=== PATIENT | male | born 1985 | race African-American/Black ===

== ENCOUNTER 2020-12-08 00:43 | Emergency (ER) | payer OTHER ==
[~2020-12-08 00:43] MED LIST: AMLODIPINE BESYL5 MG PO; CHLORTHALIDONE25 MG PO; COZAAR 25MG TAB25 MG PO; IBUPROFEN800 MG PO; VIBRAMYCIN100 MG PO
[2020-12-08 02:01] LABS: BASOPHIL 0.1 % (0-2); EOSINOPHIL 0.8 % (0-5); HCT 47.3 % (42.0-52.0); HGB 15.3 g/dl (13.2-18.0); LYMPHOCYTE 34.9 % (15-48); MCHC 32.3 g/dL (32.0-36.0); MCV 86.6 fL (78.0-100.0); MONOCYTE 6.1 % (0-12); MPV 11.1 fL (6.0-9.5); NRBC 0; PLT 249 K/uL (150-400); RBC 5.46 M/uL (4.70-6.00); RDW 11.4 % (11.5-14.0); WBC 7.7 K/uL (4.0-10.5)
[2020-12-08 02:12] LABS: INR 1.01 (0.9-1.2); PROTHROMBIN TIME 12.6 SECONDS (11.4-13.6); PTT 30.3 SECONDS (22.2-34.7)
[2020-12-08 02:29] LABS: PRO-BNP < 5 pg/mL (<125)
[2020-12-08 02:37] LABS: ALBUMIN 3.5 g/dL (3.4-5.0); BILIRUBIN - TOTAL 0.5 mg/dL (0.2-1.0); BUN/CREAT RATIO (CALC) 16.5 RATIO; C-REACTIVE PROTEIN 4.3 mg/dL (<=0.90); CREATININE 1.15 mg/dL (0.67-1.17); GLOBULIN (CALCULATION) 4.9 g/dL; POTASSIUM 3.1 mmol/L (3.5-5.1); TOTAL PROTEIN 8.4 g/dL (6.4-8.2)
[2020-12-08 02:51] LABS: CORONAVIRUS 2019 SARS-COV-2 POSITIVE (NEGATIVE); INFLUENZA A NAA NEGATIVE (NEGATIVE)
[2020-12-08] MEDS ORDERED: HYCODAN5 ML PO ×2 (03:01→03:04)
[2020-12-08] MEDS ORDERED: TESSALON PERLE100 M1 PO (03:04)
[2020-12-08] MEDS ORDERED: VENTOLIN HFA18 GM INH (03:04)
== END 2020-12-08 03:15 | disposition home or self-care (01) ==
LOC: FER 00:43
PROVIDERS: Emergency Medicine
DX: U07.1 COVID-19 (principal); R42 Dizziness and giddiness; E11.9 Type 2 diabetes mellitus without complications; Z79.84 Long term (current) use of oral hypoglycemic drugs
CPT/HCPCS: 36415; 36600; 71250; 80053; 82728; 82803; 83605; 83735; 83880; 84145; 84484; 85025; 85610; 85730; 86140; 93005; U0002

== ENCOUNTER 2021-04-20 23:41 | Emergency (ER) | payer OTHER ==
[~2021-04-20 23:41] MED LIST changes: +HYCODAN5 ML PO; +TESSALON PERLE100 M1 PO; +VENTOLIN HFA18 GM INH
[2021-04-21 00:43] LABS: BASOPHIL 0.7 % (0-2); HCT 44.4 % (42.0-52.0); HGB 15.1 g/dl (13.2-18.0); LYMPHOCYTE 45.5 % (15-48); MCH 28.6 pg (25.0-31.0); MCV 84.1 fL (78.0-100.0); MONOCYTE 4.5 % (0-12); MPV 11.2 fL (6.0-9.5); NEUTROPHIL 46.1 % (41-80); NRBC 0; PLT 284 K/uL (150-400); RBC 5.28 M/uL (4.70-6.00); RDW 11.7 % (11.5-14.0); WBC 8.7 K/uL (4.0-10.5)
[2021-04-21 00:56] LABS: ALBUMIN 3.6 g/dL (3.4-5.0); BILIRUBIN - TOTAL 0.4 mg/dL (0.2-1.0); BUN/CREAT RATIO (CALC) 10.9 RATIO; CREATININE 1.01 mg/dL (0.67-1.17); GLOBULIN (CALCULATION) 4.4 g/dL; POTASSIUM 3.6 mmol/L (3.5-5.1)
[2021-04-21 03:44] LABS: BILIRUBIN NEGATIVE (NEGATIVE); BLOOD NEGATIVE Ery/uL (NEGATIVE); CLARITY CLEAR (CLEAR); COLOR YELLOW (YELLOW); GLUCOSE (U) 3+ mg/dL (NORMAL); LEUKOCYTES NEGATIVE Leu/uL (NEGATIVE); NITRITE NEGATIVE (NEGATIVE); PROTEIN NEGATIVE (NEGATIVE); SPECIFIC GRAVITY 1.025 (1.001-1.030); UROBILINOGEN 0.2 mg/dL (0.2-1.0); pH 5.5 (5.0-9.0)
[2021-04-21] MEDS ORDERED: AMLODIPINE BESYL5 MG PO (03:44)
[2021-04-21] MEDS ORDERED: CHLORTHALIDONE25 MG PO (03:44)
[2021-04-21] MEDS ORDERED: COZAAR50 MG PO (03:45)
[2021-04-21] MEDS ORDERED: CLONIDINE HCL0.1 MG PO (03:47)
== END 2021-04-21 04:05 | disposition home or self-care (01) ==
LOC: FER 23:41
PROVIDERS: Emergency Medicine Emergency Medical Services
DX: I10 Essential (primary) hypertension (principal); G47.30 Sleep apnea, unspecified; E11.9 Type 2 diabetes mellitus without complications; Z79.899 Other long term (current) drug therapy
CPT/HCPCS: 36415; 70450; 71045; 80053; 81003; 84484; 85025; 93005; J0360; J3490